=== PATIENT | male | born 1940 | race Caucasian/White ===

== ENCOUNTER 2017-04-12 07:49 | Inpatient (IN) | payer MEDICARE, OTHER ==
--- NOTE | ~2017-04-12 | PREOPHP ---
PreOp History and Physical [facility] [address] [place]. [address] NAME: ELIEZER DAVIES : 40 STATUS : ADM IN PAT#: [id number] AGE: 76 ADM/REG DATE : 04/12/17 MR#: [id number] REPORT SERV DATE: 04/12/17 DICTATED BY: PARMINDER KIM DATE: 04/12/17 REPORT STATUS : Draft TRANSCRIBED BY: MODEdward DATE: 04/12/17 CHIEF COMPLAINT: Back pain, bilateral leg pain. HISTORY OF PRESENT ILLNESS: A 76-year-old male with severe back pain, bilateral leg pain, worse with standing or walking, better with sitting, and he has classic spinal stenosis and spondylolisthesis at L4-5. He has very severe canal stenosis with almost complete obliteration of the central canal, lateral recess, and the foramen. At L4-5, there is a grade 1 spondylolisthesis with some instability as well. He does have some [id number]-[id number] narrowing of the foramen at L3-4, and at L2-3 has some foraminal stenosis on the right side. These are not being addressed. The severe stenosis is the area of major treatment today. There is also noted to be some narrowing mild to moderate at T10-11. There is some slight cord deformity, but it does not have any evidence of myelopathy, and for this reason, we were doing only the L4-5 area. Prior to planned surgery, there is a left and right L4-5 hemilaminectomy, foraminotomy, facetectomy, transforaminal diskectomy, anterior interbody cage insertion, posterior lateral interbody fusion with local bone graft and allograft. This will be supplemented by stabilization via a percutaneous Voyager segmental instrumentation prior to surgery. Risks, benefits, alternatives, and expectations have been explained. Consent form is signed. Please note, because of the complexity of surgery and the need to identify correct level of surgery intraoperatively and the desire to carry out the safest and most precise dissection, we feel intraoperative navigation is mandatory. PAST MEDICAL HISTORY: Included exogenous obesity, osteoarthritis, hypertension, hypercholesterolemia, gastroesophageal reflux disease, and diabetes mellitus type 2. PAST SURGICAL HISTORY: [place] teeth extraction, tonsillectomy, and adenoidectomy. CURRENT MEDICATIONS: Include metformin, Tylenol No. 3, amlodipine, atorvastatin, Neurontin, ramipril. ALLERGIES: NONE. SOCIAL HISTORY: He is . Retired. He drinks one alcoholic drink every other day and is a nonsmoker. FAMILY HISTORY: Mother of coronary artery disease at age 81 and mother had hypertension as well. Father had coronary artery disease and at age 47. REVIEW OF SYSTEMS: He denies current chest pain. No shortness of breath is noted. He has normal bowel and bladder function. PHYSICAL EXAMINATION: GENERAL: Weight is 230, height 5 feet 4 inches, BMI is 39.5. He is alert, cooperative, well oriented. Ambulates independently. Does walk sometimes with a walker because he has some ankle deformity as well. PreOp History and Physical [address] [address] NAME: ELIEZER DAVIES : 40 STATUS : ADM IN [facility]#: [id number] AGE: 76 ADM/REG DATE : 04/12/17 MR#: [id number] REPORT SERV DATE: 04/12/17 DICTATED BY: PARMINDER KIM DATE: 04/12/17 REPORT STATUS : Draft TRANSCRIBED BY: EWA DATE: 04/12/17 HEENT: Normocephalic. Pupils are equal and reactive to light. Extraocular muscles are intact. Oral exam is grossly normal. LUNGS: Clear to auscultation. HEART: Rate is regular and rhythmic. ABDOMEN: Obese, but is soft with good bowel sounds. MUSCULOSKELETAL: The spine has no gross deformities. He cannot heel walk or toe walk. Patella and Achilles reflex completely absent. Toes are downgoing. No ankle clonus found. He does have stocking-glove decreased sensation both to vibration and to pinwheel testing below the knees bilateral. Motor strengths, he has a drop foot partial bilateral with tibialis anterior, peroneal, posterior tibialis all 4-/5. His gastrocsoleus is 5/5. Once again, we did not see any evidence of myelopathy on exam. Orthopedically, he has no pain with moving hips, knees, or ankles. He has palpable pulses in each extremity. Capillary refill is about four seconds. No abnormal skin lesions are found. ASSESSMENT AND RECOMMENDATIONS: As listed above. MARCIA/EWA Parminder Kim D.O. / [id number] CC: Kameron Villarreal DO
--- NOTE | ~2017-04-12 | DS ---
Discharge Summary [facility] [address] [place]. [address] NAME: ELIEZER DAVIES : 40 STATUS : DIS IN PAT#: [id number] AGE: 76 ADM/REG DATE : 04/12/17 MR#: [id number] REPORT SERV DATE: 04/25/17 DICTATED BY: PARMINDER KIM DATE: 04/24/17 REPORT STATUS : Draft TRANSCRIBED BY: MODEdward DATE: 04/24/17 Data Collection from hospitalization DISCHARGE DIAGNOSES: 1. Grade 1 spondylolisthesis with severe spinal stenosis, L4-5. 2. Exogenous obesity. 3. Osteoarthritis. 4. Hypertension. 5. Hypercholesterolemia. 6. Gastroesophageal reflux disease. 7. Diabetes mellitus type 2. CONSULTATIONS: None. PROCEDURES PERFORMED: 1. Microscopic navigation assisted surgery. 2. Left and right L4-5 hemilaminectomy, foraminotomy, and facetectomy. 3. L4 Alejandro posterior column osteotomy. 4. Transforaminal diskectomy, L4-5. 5. Anterior interbody cage insertion. 6. Posterior lateral interbody fusion with local bone graft, allograft. 7. Posterior percutaneous Voyager instrumentation, L4-L5; all 04/12/2017. PATHOLOGY: Lumbar spine repair, fragmented bone, cartilage, and soft tissue; no evidence of an infectious or neoplastic process. MEDICATIONS: Norvasc 5 mg twice daily; Lipitor 10 mg at bedtime; Zantac 150 mg at bedtime; Neurontin 100 mg at bedtime; Pepcid 20 mg at bedtime; Robaxin 750 mg every 8 hours; Protonix 40 mg before breakfast; Nexium 40 mg daily; Altace 10 mg twice daily; Tylenol 8 hour 650 mg twice daily; Tylenol 650 mg rectally every 4 hours as needed; Mylanta 30 mL as needed; Dulcolax 10 mg rectally as needed; Dulcolax 15 mg orally as needed; Glumetza 500 mg every evening; Roxicodone 7.5 to 15 mg every four hours as needed; multivitamin without minerals one daily; Caltrate 600 mg daily; and PreserVision 1 twice daily. CONDITION AT DISCHARGE: Upon discharge, he did appear to be doing well and had no complaints. DISPOSITION: He had been discharged with transfer to [facility] to continue a regular diet with activity as discussed. He is to follow up with me in the office in two weeks. HOSPITAL COURSE: This 76-year-old male, had severe back pain, bilateral leg pain worse with standing or walking better with sitting, and he had classical spinal stenosis and spondylolisthesis at L4-5. He had very severe canal stenosis with almost complete obliteration of the central canal, lateral recess, and the foramen. At L4-5, there was a grade 1 spondylolisthesis with some instability as well. He did have some mild to moderate narrowing of the foramen at L3-L4 and L2-L3 with some foraminal stenosis on the right side. These were not being addressed. The severe stenosis is the area of major treatment. There Discharge Summary [facility] [address] [place]. [address] NAME: ELIEZER DAVIES : 40 STATUS : DIS IN [facility]#: [id number] AGE: 76 ADM/REG DATE : 04/12/17 MR#: [id number] REPORT SERV DATE: 04/25/17 DICTATED BY: PARMINDER KIM DATE: 04/24/17 REPORT STATUS : Draft TRANSCRIBED BY: EWA DATE: 04/24/17 was also noted to be some narrowing [id number] at T10-T11. There was some slight cord deformity but it did not have any evidence of myelopathy and for this reason, we were doing only the L4-L5 area. The risks and benefits of surgery had been discussed with the patient. He was agreeable to proceed. He was admitted for this and further evaluation. Upon admission to the hospital, he had been taken to the operating room where he did undergo the above procedure. He had tolerated this well, was transferred to the recovery room. On postop day #1, he was evaluated by Physical Therapy and did appear to be doing well postoperatively. He had also been placed on oral medications. On postop day #2, he did continue to do well and had been placed on laxatives and Reglan. He was continued on physical therapy. On postop day #3, he did remain in stable condition and had no new complaints. He was then transferred to [facility]. Information collected by: Rajeev Olson. I submit the above information as my discharge summary. SILVIA/EWA Parminder Kim D.O. / [id number] CC: Kameron Villarreal DO
--- NOTE | ~2017-04-12 | OP ---
Record Of Operation [facility] [address] [place]. [address] NAME: ELIEZER DAVIES : 40 STATUS : ADM IN PAT#: [id number] AGE: 76 ADM/REG DATE : 04/12/17 MR#: [id number] REPORT SERV DATE: 04/12/17 DICTATED BY: PARMINDER KIM DATE: 04/12/17 REPORT STATUS : Draft TRANSCRIBED BY: MODL DATE: 04/12/17 DATE OF PROCEDURE: PREOPERATIVE DIAGNOSIS: Grade 1 spondylolisthesis with severe spinal stenosis, L4-5. POSTOPERATIVE DIAGNOSIS: Grade 1 spondylolisthesis with severe spinal stenosis, L4-5. PROCEDURE: 1. Microscopic navigation-assisted surgery. 2. Left and right L4-5 hemilaminectomy, foraminotomy, and facetectomy. 3. L4 Alejandro posterior column osteotomy. 4. Transforaminal diskectomy, L4-5. 5. Anterior interbody cage insertion. 6. Posterior-lateral interbody fusion with local bone graft allograft. 7. Posterior percutaneous Voyager instrumentation, L4-5. SURGEON: Parminder Kim D.O. PUMP ROOM OPERATOR: Lai Dhillon. ANESTHESIA: General. BLOOD LOSS: 200 mL. INDICATIONS: Indications for surgery and risks were explained. They are listed in the last office note as well as history and physical. See that for detail. DESCRIPTION OF PROCEDURE: Antibiotic prophylaxis given. Neurophysiology monitoring leads inserted. The patient was brought to the operative suite. General anesthetic including endotracheal intubation was administered. Lomax catheter was placed with sterile technique. The patient placed prone on a Ulises spine frame. Bony prominences were carefully padded. Thoracolumbar spine was scrubbed with Hibiclens solution. DuraPrep was painted, and sterile drapes applied. A small stab wound was carried out over the right posterior superior iliac spine and percutaneous pin with navigational frame attached was inserted in PSIS. Intraoperative CT scan was obtained and navigational system was registered. With navigational assistance, I identified the L4-5 level. Starting on the right side just lateral to the facet joint, a 3 cm skin incision was carried out. A blunt navigated probe placed through the fascia, muscle, and docked over the facet joint. Muscle dilators were inserted, followed by placement of the 2-way retractor. With navigational assistance, I identified the top of the pedicle of L5 and the inferior pedicle of L4. I started lateral and dissected from lateral to medial removing the entire superior facet of L5 down to the top of the pedicle, the inferior articular process of L4, the lamina of L4, and the pars interarticularis of L4 including a Alejandro posterior column osteotomy. The local bone graft Record Of Operation [facility] [address] [place]. [address] NAME: ELIEZER DAVIES : 40 STATUS : ADM IN PAT#: [id number] AGE: 76 ADM/REG DATE : 04/12/17 MR#: [id number] REPORT SERV DATE: 04/12/17 DICTATED BY: PARMINDER KIM DATE: 04/12/17 REPORT STATUS : Draft TRANSCRIBED BY: EWA DATE: 04/12/17 was morcellized and later used as part of the fusion along with some allograft and bone protein. The medial aspect of the L5 facet joint removed to decompress the lateral recess. Severe ligamentum flavum and facet hypertrophy was present causing severe central canal lateral recess and foraminal stenosis. I dissected all the way to the midline removing the ligamentum flavum and the bony enlargement. Finally, a transforaminal diskectomy was carried out with curettes, rongeurs, and disk kiersten and this nicely decompressed the exiting L4 nerve root. The wounds were irrigated. The retractor was removed, and I moved to the left side. On the left side, once again I identified L4-5. I carried out the same 3 cm skin incision just lateral to the facet joint. I placed a blunt navigated probe through the fascial muscle and again docked over the facet joint and once again, I carried out the same identical microscopic and navigation assisted hemilaminectomy, foraminotomy, facetectomy, transforaminal diskectomy, and Alejandro osteotomy. From the left side after doing the transforaminal diskectomy, we did an intradiscal trial, interbody space was filled with grafting material. The cage was then inserted through the transforaminal approach into the midline against the anterior longitudinal ligament packing the graft on either side of the cage. A posterolateral interbody fusion was completed with additional bone grafting. The Alejandro osteotomy had been completed on the left and right side. Finally, after the retractor was removed through the same incision as previously described, a percutaneous Voyager pedicle tap and screw desktop manager were used to tap the pedicles of L4 and 5, polyaxial Voyager screws were inserted with screw extenders. The appropriate size chema was then placed through the top portion of the screw extenders, reduced into the tulip of the pedicle screw, the set screws inserted and tightened with a torque wrench providing rigid stability. Intraoperative CT scan with O-arm was repeated showing good position of all implants and excellent decompression. Final irrigation was completed. The fascial layers closed with a single interrupted #1 Vicryl suture. The subcutaneous tissue closed with 2-0 Vicryl suture, 2-0 vertical mattress nylon suture used for skin closure. Sterile dressings applied. The patient was awakened and extubated and taken to recovery room in satisfactory condition having tolerated the procedure well. MARCIA/EWA Parminder Kim D.O. / [id number] CC: Parminder Kim D.O.
[~2017-04-12 07:49] MED LIST: 8 HOUR650 MG PO; ALTACE10 MG PO; ASAB PO; CALTRA600D PO; DOCUSOFT S100 MG PO; GLUCCHONDR PO; GLUMETZA500 MG PO; LIPITOR10 PO; LOZOLTAB PO; MULTIVITAMI1 PO; NAP500 PO; NEUR100 PO; NEXIUM40 PO; NORV5 PO; PRESERVISION A1 EAC1 PO; PSYLLIUM FIBER PO; T3 PO; VITAMIN D1000 UNI1 PO; VITC500 PO; ZANTAC150 MG PO
[2017-04-12 15:44] LABS: BASOPHILS 0.2 %; BASOPHILS ABSOLUTE 0.03 10/3/uL (0.0-0.16); EOSINOPHILS 2.3 %; EOSINOPHILS ABSOLUTE 0.28 10/3/uL (0.0-0.53); IMMATURE GRANULOCYTES 0.4 %; IMMATURE GRANULOCYTES ABSOLUTE 0.05 10/3/uL (0.0-0.11); LYMPHOCYTES 26.7 %; LYMPHOCYTES ABSOLUTE 3.27 10/3/uL (0.67-4.30); MEAN CORPUS HGB CONC 33.8 g/dL (32.0-36.0); MEAN CORPUSCULAR HEMOGLOB 31.9 pg (26.0-34.0); MEAN CORPUSCULAR VOLUME 94.4 fL (80-100); MEAN PLATELET VOLUME 11.3 fL (9.2-13.0); MONOCYTES ABSOLUTE 0.98 10/3/uL (0.21-1.20); NEUTROPHILS 62.4 %; NEUTROPHILS ABSOLUTE 7.66 10/3/uL (2.02-8.40); PLATELET COUNT 217 10/3/uL (150-400); RED CELL COUNT 3.76 10/6/uL (4.7-6.1)
[2017-04-12 15:46] LABS: HEMATOCRIT 35.5 % (40.0-51.0); MANUAL DIFF NO %; WHITE BLOOD CELLS 12.3 10/3/uL (4.5-10.5)
[2017-04-12 15:57] LABS: CALCIUM, SERUM 8.7 MG/DL (8.5-10.4); CHLORIDE, SERUM 105 MMOL/L (96-112); CO2 (CARBON DIOXIDE) 28 MMOL/L (24-34); CREATININE 0.73 MG/DL (0.70-1.30); GFR AFRICAN AMERICAN 104 ML/MIN (>=60); GFR NON AFRICAN AMERICAN 90 ML/MIN (>=60); SODIUM, SERUM 135 MMOL/L (135-148)
[2017-04-12 15:58] LABS: BUN (BLOOD UREA NITROGEN) 15 MG/DL (6-23); GLUCOSE, SERUM 151 MG/DL (60-99); POTASSIUM, SERUM 3.4 MMOL/L (3.5-5.3)
[2017-04-13 04:51] LABS: BASOPHILS 0.1 %; BASOPHILS ABSOLUTE 0.01 10/3/uL (0.0-0.16); EOSINOPHILS ABSOLUTE 0.22 10/3/uL (0.0-0.53); HEMATOCRIT 38.3 % (40.0-51.0); IMMATURE GRANULOCYTES 0.2 %; IMMATURE GRANULOCYTES ABSOLUTE 0.02 10/3/uL (0.0-0.11); LYMPHOCYTES 12.5 %; LYMPHOCYTES ABSOLUTE 1.35 10/3/uL (0.67-4.30); MEAN CORPUS HGB CONC 33.9 g/dL (32.0-36.0); MEAN CORPUSCULAR VOLUME 97.2 fL (80-100); MEAN PLATELET VOLUME 11.3 fL (9.2-13.0); MONOCYTES 7.9 %; MONOCYTES ABSOLUTE 0.85 10/3/uL (0.21-1.20); NEUTROPHILS 77.3 %; NEUTROPHILS ABSOLUTE 8.36 10/3/uL (2.02-8.40); PLATELET COUNT 200 10/3/uL (150-400); RED CELL COUNT 3.94 10/6/uL (4.7-6.1); WHITE BLOOD CELLS 10.8 10/3/uL (4.5-10.5)
[2017-04-13 04:52] LABS: MANUAL DIFF NO %
[2017-04-13 05:03] LABS: BUN (BLOOD UREA NITROGEN) 15 MG/DL (6-23); CALCIUM, SERUM 8.7 MG/DL (8.5-10.4); CHLORIDE, SERUM 102 MMOL/L (96-112); CO2 (CARBON DIOXIDE) 27 MMOL/L (24-34); CREATININE 0.74 MG/DL (0.70-1.30); GFR AFRICAN AMERICAN 104 ML/MIN (>=60); GFR NON AFRICAN AMERICAN 90 ML/MIN (>=60); POTASSIUM, SERUM 3.9 MMOL/L (3.5-5.3); SODIUM, SERUM 134 MMOL/L (135-148)
[2017-04-13 05:07] LABS: GLUCOSE, SERUM 115 MG/DL (60-99)
[2017-04-14 08:27] LABS: BASOPHILS 0.1 %; BASOPHILS ABSOLUTE 0.01 10/3/uL (0.0-0.16); EOSINOPHILS 0.6 %; EOSINOPHILS ABSOLUTE 0.08 10/3/uL (0.0-0.53); HEMATOCRIT 33.8 % (40.0-51.0); HEMOGLOBIN 11.2 g/dL (13.6-17.8); IMMATURE GRANULOCYTES 0.2 %; IMMATURE GRANULOCYTES ABSOLUTE 0.03 10/3/uL (0.0-0.11); LYMPHOCYTES 13.1 %; LYMPHOCYTES ABSOLUTE 1.65 10/3/uL (0.67-4.30); MANUAL DIFF NO %; MEAN CORPUS HGB CONC 33.1 g/dL (32.0-36.0); MEAN CORPUSCULAR HEMOGLOB 31.7 pg (26.0-34.0); MEAN CORPUSCULAR VOLUME 95.8 fL (80-100); MEAN PLATELET VOLUME 11.3 fL (9.2-13.0); MONOCYTES 11.2 %; MONOCYTES ABSOLUTE 1.41 10/3/uL (0.21-1.20); NEUTROPHILS 74.8 %; NEUTROPHILS ABSOLUTE 9.43 10/3/uL (2.02-8.40); PLATELET COUNT 188 10/3/uL (150-400); RED CELL COUNT 3.53 10/6/uL (4.7-6.1); WHITE BLOOD CELLS 12.6 10/3/uL (4.5-10.5)
[2017-04-14 08:34] LABS: BUN (BLOOD UREA NITROGEN) 11 MG/DL (6-23); CALCIUM, SERUM 8.4 MG/DL (8.5-10.4); CHLORIDE, SERUM 98 MMOL/L (96-112); CO2 (CARBON DIOXIDE) 28 MMOL/L (24-34); CREATININE 0.62 MG/DL (0.70-1.30); GFR AFRICAN AMERICAN 112 ML/MIN (>=60); GFR NON AFRICAN AMERICAN 96 ML/MIN (>=60); GLUCOSE, SERUM 125 MG/DL (60-99); POTASSIUM, SERUM 3.7 MMOL/L (3.5-5.3); SODIUM, SERUM 134 MMOL/L (135-148)
== END 2017-04-15 14:48 | DRG 460 ==
LOC: SDC/OF 07:49 → PACU 15:15 → 3SO 16:01
PROVIDERS: Orthopaedic Surgery Orthopaedic Surgery of the Spine
PROC: 0SG00AJ Fusion of Lumbar Vertebral Joint with Interbody Fusion Device, Posterior Approach, Anterior Column, Open Approach (ICD-10-PCS; principal; 2017-04-12 09:45)
PROC: 0ST20ZZ Resection of Lumbar Vertebral Disc, Open Approach (ICD-10-PCS; 2017-04-12 09:45)
PROC: 4A11X4G Monitoring of Peripheral Nervous Electrical Activity, Intraoperative, External Approach (ICD-10-PCS; 2017-04-12 09:45)
DX: M51.36 Other intervertebral disc degeneration, lumbar region (principal)
CPT/HCPCS: 36415; 71010; 80048; 82962; 85014; 85018; 85025; 86850; 86900; 86901; 87641; 88304; 88311; 93005; 97116-GP; 97161-GP; 97530-GP; A9270-GY; C1713; J0690; J1170; J1644; J2250; J2405; J2765; J3010